=== PATIENT | female | born 1970 | race Caucasian/White ===

== ENCOUNTER → 2023-12-10 18:30 | Outpatient (REF) | payer OTHER, SELFPAY | LOC: PAVMRI 18:30 | PROVIDERS: ATTENDING PHYSICIAN Orthopaedic Surgery; FAMILY PHYSICIAN Family Medicine | DX: M25.512 Pain in left shoulder (principal) | CPT/HCPCS: 73221 ==

== ENCOUNTER → 2024-01-24 10:27 | Outpatient (REF) | payer OTHER, SELFPAY | LOC: HWWDC 10:27 | PROVIDERS: ATTENDING PHYSICIAN Family Medicine | DX: Z12.31 Encounter for screening mammogram for malignant neoplasm of breast (principal) | CPT/HCPCS: 77063; 77067 ==